=== PATIENT | male | born 1975 | race Hispanic/Latino ===

== ENCOUNTER 2017-01-31 19:21 | Emergency (ER) | payer SELFPAY ==
[~2017-01-31] VITALS: Ht 165.1 cm; Wt 80.0 kg
[2017-01-31 20:46] VITALS: BP 144/97
== END 2017-01-31 20:40 | disposition home or self-care (01) | DRG 605 ==
LOC: ED 19:21
PROC: 0HQEXZZ Repair Left Lower Arm Skin, External Approach (ICD-10-PCS; principal; 2017-01-31)
DX: S51.812A Laceration without foreign body of left forearm, initial encounter (principal); W26.8XXA Contact with other sharp object(s), not elsewhere classified, initial encounter; Y93.E9 Activity, other interior property and clothing maintenance; Y92.009 Unspecified place in unspecified non-institutional (private) residence as the place of occurrence of the external cause

== ENCOUNTER 2017-02-10 18:44 | Emergency (ER) | payer SELFPAY ==
[~2017-02-10] VITALS: Ht 165.1 cm; Wt 86.2 kg
[2017-02-10 19:31] VITALS: BP 131/96
== END 2017-02-10 19:36 | disposition home or self-care (01) | DRG 950 ==
LOC: ED 18:44
DX: S51.802D Unspecified open wound of left forearm, subsequent encounter (principal); X58.XXXD Exposure to other specified factors, subsequent encounter